=== PATIENT | male | born 1955 | race Asian ===

== ENCOUNTER → 2024-07-03 16:30 | Outpatient (REF) | payer BC, SELFPAY | LOC: RAD 16:30 | PROVIDERS: ATTENDING PHYSICIAN Student in an Organized Health Care Education/Training Program; FAMILY PHYSICIAN Family Medicine | DX: N17.9 Acute kidney failure, unspecified (principal) | CPT/HCPCS: 76770 ==

== ENCOUNTER → 2025-05-12 18:47 | Outpatient (REF) | payer BC, SELFPAY | LOC: MRI 3T 18:47 | PROVIDERS: ATTENDING PHYSICIAN Surgery; FAMILY PHYSICIAN Family Medicine | DX: R97.20 Elevated prostate specific antigen [PSA] (principal) | CPT/HCPCS: 72197; A9575 ==